=== PATIENT | male | born 1980 | race African-American/Black ===

== ENCOUNTER 2025-02-09 14:58 | Emergency (ER) | payer MEDICAID ==
[~2025-02-09] VITALS: Ht 177.8 cm; Wt 130.0 kg
[2025-02-09 15:01] VITALS: O2SAT 96
[2025-02-09] MEDS: HYDROCODONE/ACETAMINOPHEN 5/325MG TABLET PO ONE (18:31)
[2025-02-09] MEDS: IBUPROFEN 600MG TABLET PO ONE (18:31)
[2025-02-09] MEDS: ONDANSETRON 4MG ODT PO ONE (18:31)
[2025-02-09] MEDS ORDERED: TOPUD PO (19:36)
[2025-02-09] MEDS ORDERED: IBUP-2028 MT (19:36)
[2025-02-09] MEDS ORDERED: LIDO700A15 TP (19:36)
[2025-02-09] MEDS ORDERED: METH-653 MT (19:36)
[2025-02-09 20:06] VITALS: BP 143/94; PULSE 83; RESP 16; TEMP 36.5; O2SAT 99
== END 2025-02-09 20:10 | disposition home or self-care (01) ==
LOC: ER 14:58
DX: S93.401A Sprain of unspecified ligament of right ankle, initial encounter (principal); V89.2XXA Person injured in unspecified motor-vehicle accident, traffic, initial encounter; Y92.410 Unspecified street and highway as the place of occurrence of the external cause; Y93.89 Activity, other specified; Y92.89 Other specified places as the place of occurrence of the external cause; Y99.8 Other external cause status
CPT/HCPCS: 73552; 73562; 73590; 73610; 99284; Q0162; Z7610